=== PATIENT | male | born 1995 | race Caucasian/White ===

== ENCOUNTER 2019-03-02 21:21 | Outpatient (REF) | payer BC, SELFPAY ==
[2019-03-04 12:33] LABS: Chlamydia Result Negative; GC Result Negative; Specimen Description URINE
== END 2019-03-02 21:41 ==
LOC: NCHCN 21:21
PROVIDERS: PCP Family Medicine; Visit Provider Family Medicine
DX: R19.8 Other specified symptoms and signs involving the digestive system and abdomen (principal); Z11.3 Encounter for screening for infections with a predominantly sexual mode of transmission
CPT/HCPCS: 87491; 87591

== ENCOUNTER 2019-03-06 01:35 | Outpatient (CLI) | payer BC, SELFPAY ==
--- NOTE | 2019-03-06 08:59 | DI.US_ITS ---
SYMPTOM/DIAGNOSIS: LEFT SIDED PAIN WITH LIFTING, ABD WALL PAIN IN LT FLANK R10.9, ? HERNIA ULTRASOUND ABDOMINAL WALL The area of the patient's tenderness was scanned. No fluid collection or hernia is seen. There is no visible fluid within the visualized musculature. IMPRESSION: Negative ultrasound of the abdominal wall.
== END 2019-03-06 01:55 ==
PROVIDERS: PCP Family Medicine; Visit Provider Family Medicine
DX: R10.31 Right lower quadrant pain (principal); R10.84 Generalized abdominal pain
CPT/HCPCS: 76857

== ENCOUNTER 2020-02-10 01:21 | Outpatient (CLI) | payer BC, SELFPAY ==
--- NOTE | 2020-02-10 06:15 | DI.RAD_ITS ---
EXAM: XR HAND RT COMPLETE CLINICAL HISTORY: trauma to rt middle finger; pain/swelling at tip,M79.644 TECHNIQUE: 2D digital imaging was performed. COMPARISON: No exams were available for comparison FINDINGS: There is a fracture through the midportion of the distal phalanx of the middle finger. There is slig ht displacement but no significant angulation. There is no extension to the articular surface. No f oreign body is seen. IMPRESSION: Fracture of the distal phalanx of the middle finger.
== END 2020-02-10 01:41 ==
PROVIDERS: PCP Family Medicine; Visit Provider Family Medicine
DX: S62.632A Displaced fracture of distal phalanx of right middle finger, initial encounter for closed fracture (principal)
CPT/HCPCS: 73130

== ENCOUNTER 2020-02-18 09:52 | Outpatient (CLI) | payer BC, SELFPAY ==
--- NOTE | 2020-02-18 08:30 | DI.RAD_ITS ---
EXAM: XR FINGER RT MIDDLE CLINICAL HISTORY: f/u fracture TECHNIQUE: COMPARISON: CR XR HAND RT COMPLETE from 02/10/2020 FINDINGS: Three views were obtained. Previous described fracture of distal phalanx of the middle finger is aga in noted with no gross interval change in alignment of fracture fragments comparison with previous ex amination of February 09. IMPRESSION: RADIATION DOSE DELIVERED: Total DLP
== END 2020-02-18 10:12 ==
PROVIDERS: PCP Family Medicine; Referring Provider Family Medicine; Visit Provider Student in an Organized Health Care Education/Training Program
DX: S62.632A Displaced fracture of distal phalanx of right middle finger, initial encounter for closed fracture (principal)
CPT/HCPCS: 73140

== ENCOUNTER 2021-09-21 02:34 | Outpatient (CLI) | payer OTHER, SELFPAY ==
--- NOTE | 2021-09-21 07:30 | DI.MRI_ITS ---
Exam(s) MR CERVICAL SPINE WO EXAM: MR CERVICAL SPINE WO CLINICAL HISTORY: Persistent numbness. EMG shows C6-7 involvement,R20.0,R20.2 TECHNIQUE: Multiplanar multisequence MRI of the cervical spine was performed without intravenous con trast. COMPARISON: No exams were available for comparison FINDINGS: BONES: Vertebral body heights are maintained. Intervertebral disc spaces are normal. Alignment is nor mal. Bone marrow signal intensity is within normal limits. No degenerative changes. CERVICAL CORD: Craniovertebral junction is unremarkable. The cervical cord is normal size and signal intensity. SOFT TISSUES: Unremarkable. No mass is appreciated. C2-3: No disc herniation or bulge is identified. No neural foraminal narrowing or central canal sten osis. C3-4: No disc herniation or bulge is identified. No neural foraminal narrowing or central canal steno sis. C4-5: No disc herniation or bulge is identified. No neural foraminal narrowing or central canal steno sis. C5-6: No disc herniation or bulge is identified. No neural foraminal narrowing or central canal steno sis. C6-7: No disc herniation or bulge is identified. No neural foraminal narrowing or central canal steno sis. C7-T1: No disc herniation or bulge is identified. No neural foraminal narrowing or central canal sten osis. IMPRESSION: Unremarkable MRi of the cervical spine. DATA REPOSITORY:
== END 2021-09-21 02:54 ==
PROVIDERS: PCP Family Medicine; Visit Provider Nurse Practitioner Family
DX: R20.0 Anesthesia of skin (principal); R20.2 Paresthesia of skin
CPT/HCPCS: 72141

== ENCOUNTER 2022-01-05 01:35 | Outpatient (CLI) | payer BC, SELFPAY ==
[2022-01-05 12:45] LABS: ALT 73 U/L (16-63); AST 25 U/L (15-37); Alkaline Phosphatase 56 U/L (46-116); Anion Gap 7.3 mmol/L (3-11); BUN 11 mg/dL (7-18); Bilirubin, Total 0.9 mg/dL (0.2-1.0); CO2 28.7 mmol/L (21.0-32.0); CREATININE 0.9 mg/dL (0.70-1.30); Calcium 9.1 mg/dL (8.5-10.1); Calculated LDL 170 mg/dL (<100); Chloride 104 mmol/L (98-107); Cholesterol 222 mg/dL (<200); Glucose 91 mg/dL (74-106); HDL Cholesterol 41 mg/dL (40-60); Potassium 4.2 mmol/L (3.5-5.1); Sodium 140 mmol/L (136-145); Total Protein 7.8 g/dL (6.4-8.2); Triglyceride 56 mg/dL (<150)
== END 2022-01-05 01:36 | disposition home or self-care (01) ==
LOC: LBO 01:35
PROVIDERS: PCP Student in an Organized Health Care Education/Training Program; Referring Provider Student in an Organized Health Care Education/Training Program; Visit Provider Student in an Organized Health Care Education/Training Program
DX: E86.0 Dehydration (principal); Z13.220 Encounter for screening for lipoid disorders
CPT/HCPCS: 36415; 80053; 80061

== ENCOUNTER 2022-05-11 01:24 | Outpatient (CLI) | payer BC, SELFPAY ==
[2022-05-11 08:56] LABS: ALT 66 U/L (16-63); AST 23 U/L (15-37); Albumin 3.8 g/dL (3.4-5.0); Alkaline Phosphatase 56 U/L (46-116); Anion Gap 7.6 mmol/L (3-11); BUN 11 mg/dL (7-18); Bilirubin, Total 0.8 mg/dL (0.2-1.0); CO2 26.4 mmol/L (21.0-32.0); CREATININE 0.8 mg/dL (0.70-1.30); Calcium 8.7 mg/dL (8.5-10.1); Calculated LDL 164 mg/dL (<100); Chloride 105 mmol/L (98-107); Cholesterol 222 mg/dL (<200); Estimated GFR 123.63 (mL/min/1.73m2); Glucose 96 mg/dL (74-106); HDL Cholesterol 46 mg/dL (40-60); Potassium 4.1 mmol/L (3.5-5.1); Sodium 139 mmol/L (136-145); Total Protein 7.6 g/dL (6.4-8.2); Triglyceride 60 mg/dL (<150)
[2022-05-11 11:09] LABS: Bilirubin, Direct 0.2 mg/dL (0.0-0.2)
== END 2022-05-11 01:25 | disposition home or self-care (01) ==
LOC: LBO 01:24
PROVIDERS: PCP Student in an Organized Health Care Education/Training Program; Referring Provider Student in an Organized Health Care Education/Training Program; Visit Provider Student in an Organized Health Care Education/Training Program
DX: Z13.220 Encounter for screening for lipoid disorders (principal); E86.0 Dehydration; Z91.89 Other specified personal risk factors, not elsewhere classified
CPT/HCPCS: 36415; 80048; 80061; 80076

== ENCOUNTER 2022-06-08 00:40 | Outpatient (CLI) | payer SELFPAY ==
--- NOTE | 2022-06-08 06:45 | DI.RAD_ITS ---
Exam(s) XR CERVICAL SP COMP W FLEX/EXT EXAM: XR CERVICAL SP COMP W FLEX/EXT CLINICAL HISTORY: evaluate joint space, alignment; (+) EMG C6-7,RADICULOPATHY,ABNL EMG,M54.10. TECHNIQUE: 2D digital imaging was performed. COMPARISON: No exams were available for comparison FINDINGS: Total= 7 views, including standard five views as well as flexion/extension lateral views There is no evidence of fracture, listhesis, nor offset of the spinal laminar line. All of the disc spaces exhibit normal height. There is no facet arthropathy evident. No Luschka joint osteophytes e vident on the oblique views. No incidental cervical ribs. Bone density is normal. No osseous lesio ns. Flexion and extension views do not demonstrate listhesis nor disc space narrowing nor facet malalignm ent. IMPRESSION: No significant radiograph findings and the 7 views of the cervical spine. No disc space narrowing. No listhesis. DATA REPOSITORY: RADIATION DOSE DELIVERED:
== END 2022-06-08 01:00 ==
LOC: DI 00:40
PROVIDERS: PCP Student in an Organized Health Care Education/Training Program; Visit Provider Student in an Organized Health Care Education/Training Program
DX: M54.12 Radiculopathy, cervical region (principal); R94.131 Abnormal electromyogram [EMG]
CPT/HCPCS: 72052

== ENCOUNTER 2024-03-16 02:58 | Outpatient (CLI) | payer BC, SELFPAY | END 2024-03-16 02:59 | disposition home or self-care (01) | LOC: LBO 02:58 | PROVIDERS: PCP Student in an Organized Health Care Education/Training Program; Referring Provider Student in an Organized Health Care Education/Training Program; Visit Provider Student in an Organized Health Care Education/Training Program | DX: G47.9 Sleep disorder, unspecified (principal); D17.9 Benign lipomatous neoplasm, unspecified; F33.8 Other recurrent depressive disorders; K90.9 Intestinal malabsorption, unspecified; Z91.89 Other specified personal risk factors, not elsewhere classified; F32.A Depression, unspecified | CPT/HCPCS: 36415; 80061; 82306; 82172; 82664 ==

== ENCOUNTER 2024-03-31 02:27 | Outpatient (CLI) | payer BC, SELFPAY ==
--- NOTE | 2024-03-31 07:00 | DI.MRI_ITS ---
Exam(s) MR LOWER EXTREMITY RT WO/W EXAM: MR LOWER EXTREMITY RT WO/W CLINICAL HISTORY: f/u abnl us,leg lesion, rt lump,r22.41,L98.9 TECHNIQUE: Multiplanar multisequence MRI was performed. COMPARISON: Prior ultrasound examination 03/09/2024 FINDINGS: MARROW:There is no evidence of fracture, bone contusion, nor avascular necrosis. There are no signif icant osseous lesions. No evidence of marrow edema in the tibia and fibula.. MUSCLES: There is no evidence of abnormal signal nor mass in the visualized muscles. EXTRAMUSCULAR SOFT TISSUES: In the anterior subcutaneous fat layer there is finding corresponding to the recent ultrasound finding located just anterolateral to the tibia and anterior to the tibialis an terior muscle. This has the appearance of a lipoma which contains multiple internal serpiginous vess els, consistent with the vascular flow seen within this lesion on the recent ultrasound examination 0 03/09/2024 OTHER: There are no other similar lesions in the field of view of this study. Partially visualized k nee structures appear unremarkable. IMPRESSION: 1. Findings in the anterior subcutaneous fat corresponding to what is seen on recent ultrasound mckenzie keller appearance of probable vascular malformation within the anterior subcutaneous fat. Another conside ration would be for a lipoma with increased vascularity. No adjacent bony abnormality seen in the ti tiffanie. 2. Recommend follow-up imaging in a few months time to ensure stability. DATA REPOSITORY:
[2024-03-31] MEDS: Gadoterate meglumine 20 ML SYRINGE IVP (11:14)
[2024-03-31] MEDS: Normal Saline Flush 10 ML SYR IJ (11:23)
== END 2024-03-31 02:47 ==
LOC: DI 02:27
PROVIDERS: PCP Student in an Organized Health Care Education/Training Program; Visit Provider Nurse Practitioner
DX: R22.41 Localized swelling, mass and lump, right lower limb
CPT/HCPCS: 73720

== ENCOUNTER 2024-04-13 10:48 | Outpatient (CLI) | payer BC, SELFPAY ==
[2024-04-17 18:46] LABS: Apolipoprotein B, Serum 120 mg/dL; Beta VLDL Cholesterol Not Detected mg/dL (<15); Beta VLDL Triglycerides Not Detected mg/dL (<15); Cholesterol, Total, CDC 219 mg/dL; Chylomicron Cholesterol Not Detected; Chylomicron Triglycerides Not Detected; HDL Cholesterol, CDC 31 mg/dL (>=40); LDL Cholesterol 145 mg/dL; LDL Triglycerides 54 mg/dL (<=50); Lp(a) Cholesterol 20 mg/dL (<5); LpX Not detected; Triglycerides, CDC 129 mg/dL; VLDL Cholesterol 23 mg/dL (<30); VLDL Triglycerides 61 mg/dL (<120)
== END 2024-04-13 10:49 | disposition home or self-care (01) ==
LOC: LBO 10:48
PROVIDERS: PCP Student in an Organized Health Care Education/Training Program; Visit Provider Student in an Organized Health Care Education/Training Program
DX: G47.9 Sleep disorder, unspecified (principal); D17.9 Benign lipomatous neoplasm, unspecified; F33.8 Other recurrent depressive disorders
CPT/HCPCS: 36415; 80061; 82172; 82664

== ENCOUNTER 2024-05-05 06:07 | Day surgery (SDC) | payer BC, SELFPAY ==
--- NOTE | 2024-05-04 20:38 | HPE_ITS ---
Date of service: 05/05/24 Time of Service: 07:30 Assessment and Plan Assessment and plan (1) Lipoma: Status: Acute Assessment and plan: The patient has no allergies to lidocaine or suture material. The patient not on any blood thinners.? They are not on steroids are any other immunosuppressants. Informed consent was obtained prior to beginning the procedure. The area was marked and doubled checked/ID?ed with the pt. PAUSE for the CAUSE completed. The risks of lesion removal include but are not limited to: bleeding, infection, scarring, reoccurrence, and the need for removal of more tissue, and complications of anesthesia. Qualifiers: Laterality: right Lipoma location: lower extremity Qualified Code(s): D17.23 - Benign lipomatous neoplasm of skin and subcutaneous tissue of right leg History of Present Illness Narrative: Patient is here today for excision of lipoma 3=4cm of rle ant ying They not having any chest pain or shortness of breath, currently.? They are not experiencing any fever or chills.? They deny any productive cough or upper respiratory tract infection signs or symptoms.? They are not having abdominal pain, or nausea and vomiting.? They have not had any changes in medications, past medical history or past surgical history since previously being seen in the office. They have not had any accidents or have been in the ER since the clinic pre-operative evaluation. ??I reviewed the procedure with the patient today, including risks and benefits of the procedure, and what they could expect at home for recovery.? All questions are answered to the patient?s satisfaction today, and they are stable to proceed with the proposed procedure. 1. Lipoma versus vascular malformation on left lower extremity. The MRI findings suggest increased vascularity, indicating a high concentration of blood vessels in the area. An outpatient surgery is recommended for removal. The procedure, including the use of EMLA cream for numbing, was explained in detail. The potential risks, such as bleeding, infection, and recurrence, were also discussed. Post-operative care instructions include having stitches for 10 days, resting for the first 3 days, and avoiding swimming or hot tubs for 10 days. A small scar is expected at the site of removal. They agreed to proceed with the surgery, which will be scheduled on a Saturday. We reviewed what he could expect during the procedure, recovery time, and risks. Risks include but not limited to: Bleeding, infection, recurrence, reaction to medications, scarring, poor healing or cosmesis. Patient understands and desires removal of lesion. Patient will be scheduled today as a local only over in the OR because of the noted increase in vascularity on MRI and size. Patient was given the option of doing the procedure with anesthesia and he prefers to do as local only. The patient is a 29-year-old individual who presents for evaluation of a lump on their left lower extremity, suspected to be either a lipoma or a vascular malformation. They first noticed the lump approximately 5 to 6 years ago. Initially, it was not visible but could be felt. Over the past 1 to 2 years, they have observed an increase in its size. The lump has not ruptured, drained, or bled. It causes discomfort when they kneel on the affected leg, but the pain is not severe. They are considering having the lump removed. They have no known heart conditions, diabetes, asthma, sleep apnea, or breathing issues. They have had a vasectomy and had their wisdom teeth removed a long time ago without any problems with anesthesia. Focused exam was done of the lesion today. I does have the looking characteristic palpation of a lipoma. I did review the ultrasound in the chart and the MRI of the lipoma. My findings correspond with what was previously reported in the ultrasound. Aniceto is not diabetic. He does not smoke. He has had no reactions to local anesthesia or suture material in the past. He is not on any blood thinners or any immunocompromising medication. He has no history of keloids or healing problems. Review of Systems All systems reviewed & are unremarkable except as noted in HPI and below PFSH All Active Problems Lipoma (Acute) Right ying, no pain, mobile {updating d/t oustanding referral, see activities - last: On 11/08/23 @ 13:30 Marianna Rose Wrote To Micheline Hylton Referral process protocol was followed and it was not possible to contact patient [OR] patient refused services. This serves as your notification that this referral will be cancelled, please confirm receipt of this message or give instructions as to any additional outreach that you would like done.} Sleeping difficulties (Acute) Long Hx with difficulty falling asleep; usually sleeps well once asleep. No specific c/o snoring/apnea. Mood complaints in sleep disorder (Acute) w/ premature ejac? arousal change? EMG (electromyogram) abnormalities (Acute) C6-7, [facility], 08/2021 Radiculopathy (Acute) Moderate left and mild right C6-7 .. per EMG/NCV @ [facility], 08/24/21 Neck stiffness (Acute) Neck pain, musculoskeletal (Acute) Seasonal affective disorder (Acute) Hx using happy light (currently in storage) .. improved with spring. Depression (Chronic) Dehydration (Acute) Medical History Clavicle fracture, shaft rt, closed, non-displaced, 2016 Fracture of scapula, glenoid cavity or neck right, 2015 History of reactive airway disease Cyst of skin (11/24/12) Headache left-sided, improved .. 2' neck stiffness, s/p repetitive work Numbness and tingling of both upper extremities carpal tunnel ruled out Psoriasis Was on enbrel 50mg SC weekly by bruceer Lumbar strain Distal phalanx or phalanges, closed fracture Pain of right middle finger Surgical History Hx of vasectomy Dr. Chinchilla, 2021 History of third molar tooth extraction Family History Father Alcohol use disorder Prostate cancer Paternal Grandmother Cancer Lung Maternal Grandfather Cancer pancreas Diabetes Social History Smoking/Tobacco Use Status: Former Tobacco Use tobacco type: e-cigarettes Smokeless tobacco user: other (Vape) Second Hand Exposure: No Smoking risk assessment performed?: Yes Alcohol Intake: current Alcohol Intake frequency: 0-2 drinks per day Drug use: Occasionally Substance use type: marijuana Details: Not used today. Adopted: No Caregiver/Support person: No Foster care: No Household members: significant other Housing: apartment Number of Children: 0 Communication Needs: None Education Level: high school Do you need help understanding health information?: Rarely current occupation: Radio Despatcher Pets and animals: Yes Pets and animals: cat(s) and dog(s) Sexually active: Yes Do you think of yourself as: straight/heterosexual Current gender identity: male What is your relationship status?: living with partner How often do you talk on the phone with friends or family?: once per week How often do you get together with friends or relatives?: never Do you belong to any clubs or organized social groups?: no Panel score (0-1 are the most socially isolated patients): 1 What type of physical activity do you participate in: none Rubina/Alevism: None Seatbelt use: sometimes Helmet use: Yes Helmet use: always Drive intox or ride w/intox armor reconnaissance vehicle driver: No Do you feel safe at home: Yes Do you feel safe in your relationship?: Yes Meds Allergies and Home Medications Allergies Allergy/AdvReac Type Severity Reaction Status Date / Time No Known Allergies Allergy Verified 05/05/24 06:17 Home Medications ?Medication ?Instructions ?Recorded ?Confirmed ?Type psyllium husk 0.4 gram capsule 0.4 g PO DAILY PRN constipation 08/10/22 05/05/24 Rx (Fiber (psyllium husk)) #90 caps bupropion HCl 150 mg 24 hr tablet, See Rx Instructions .Route 03/04/24 05/05/24 Rx extended release .COMPLEX #90 tabs bupropion HCl 300 mg 24 hr tablet, 300 mg PO QAM #90 tabs 03/04/24 05/05/24 Rx extended release sertraline 100 mg tablet 100 mg PO QHS #90 tabs 03/04/24 05/05/24 Rx cholecalciferol (vitamin D3) 1,250 1,250 mcg PO QWEEK #10 caps 03/24/24 05/05/24 Rx mcg (50,000 unit) capsule Exam Narrative Exam Narrative: PHYSICAL EXAM GENERAL APPEARANCE: Alert, healthy appearance, oriented, x 3,? in no acute distress HYDRATION: Well hydrated HEAD, EYES, EARS, NECK, THROAT: Head is normocephalic, pupils equal, round, reactive to light and accommodation, ocular movement intact, sclera clear and no jaundice. ?Dentition intact. LUNGS: normal respiration/normal chest excursion. ?Clear to auscultation bilaterally. ?No wheeze. ?HEART: Regular rate and rhythm. no murmurs EXTREMITY: ABDOMEN: soft and non-tender to palpation.? Normal bowel sounds.? Time Spent Time spent with Patient: <40 minutes Time was spent: preparing to see the patient(eg.review tests), obtaining and/or reviewing separately otained hiistory, ordering medications,tests, procedures, referring, communicating with other health out of school hours care worker, indepentently interpreting results, counseling the patient, care coordination and other
--- NOTE | 2024-05-04 20:42 | PDOC.DSDIS_ITS ---
Date of service: 05/05/24 Time of Service: 08:14 Discharge Plan Disposition Patient Disposition: Home Condition: Good Discharge Details Reason For Visit: lipoma removal Attending Provider: Kaia Ayala Primary Care Provider: Micheline Hylton Home Meds and New Rx's Prescriptions: New tramadol 50 mg tablet 50 mg PO Q6H PRNQty: 5 0RF Continued psyllium husk [Fiber (psyllium husk)] 0.4 gram capsule 0.4 g PO DAILY PRN (Reason: constipation) Qty: 90 1RF Rx Instructions: Trial for increased soluble fiber bupropion HCl 150 mg tablet extended release 24 hr See Rx Instructions .ROUTE .COMPLEX MDD 450mg Qty: 90 3RF Dose Instruction: TAKE 1 TABLET BY MOUTH EVERY MORNING. MAX DAILY DOSE: 450 MG; TAKE WITH 300 MG DOSE. TO EQUAL 450 MG TOTAL DAILY Rx Instructions: TAKE 1 TABLET BY MOUTH EVERY MORNING. MAX DAILY DOSE: 450 MG; TAKE WITH 300 MG DOSE. TO EQUAL 450 MG TOTAL DAILY bupropion HCl 300 mg tablet extended release 24 hr 300 mg PO QAM MDD 450mg Qty: 90 3RF Rx Instructions: take with 150mg dose to equal 450mg daily sertraline 100 mg tablet 100 mg PO QHS Qty: 90 3RF Rx Instructions: Continuing cholecalciferol (vitamin D3) 1,250 mcg (50,000 unit) capsule 1,250 mcg PO QWEEK Qty: 10 0RF Discharge Instructions Additional Instructions: ? Wound Care Instruction Pain Control Use ice!? Ice keeps the swelling down and swelling is what causes pain.? Never apply ice directly to the skin.? Wrap it in a towel or cloth.? Apply ice 20 minutes on and 20 minutes off for pain control.? Use as needed. Take Tylenol 500 mg by mouth with food every 4 hours as needed for pain. Or ibuprofen 600 mg by mouth with food every 6 hours as needed for pain.? Do not take Tylenol if you have a history of heavy drinking, hepatitis C or liver problems.? Do not take ibuprofen if you have a history of stomach ulcers/problems, bleeding problem or kidney issues. ? Always wash your hands before touching your incision. ? Keep the incision clean, dry, and out of water, keep the incision out of water. ? Do not to pick at the scabs. Scabs help protect the wound. ? You can take a shower in 24 hours and wash the incision with soap and water. Pat dry/don?t scrub. It?s OK to wash around the incision. But don?t spray water directly on it. ? Pat stitches dry if they get wet. Don't rub. ? Check the incision site daily for pain, redness, drainage, swelling, or separation of the incision edges. ? Make sure any clothing that touches the incision is loose-fitting. This will prevent rubbing. As your incision heals, the skin may appear pink or red. It may also feel slightly bumpy or raised. This is called a healing ridge. Over time, the color should fade and the raised skin will become less noticeable. When to seek medical care Call your healthcare provider right away if you have any of these: ? More pain, redness, swelling, bleeding, or foul-smelling discharge around the incision area ? Fever of 101?F (38.3?C) or higher, or as directed by your child's healthcare provider ? Shaking chills ? Vomiting or nausea that doesn?t go away ? Numbness, coldness, or tingling around the incision area, or changes in skin color ? Opening of the sutures or wound -Stitches or francisco that come apart or fall out or surgical tape falls off before 7 days, or as directed by your healthcare provider ?[facility]: [phone] Activity:: see above Remove Dressings/Wound Care:: 24 hours Shower/Bathe:: 24 hours Diet:: As Tolerated Discharge Orders Discharge Orders: Discharge Order (Routine); Ordered 05/04/24 Ordered By: Kaia Ayala DS: Diagnosis Discharge Diagnosis (1) Lipoma: Status: Acute Asessment and Plan: The patient is doing well post-op from their lipoma surgery.? They are having no nausea or vomiting. They are tolerating liquids and a snack. The pt is not having any chest pain or SOB.? Their pain is adequately controlled. They have been able to urinate.? ?HEENT:? no eye pain/drainage/redness/swelling. Mild sore throat ?Cardio- NSR, no chest pain, BP stable- see VS record ?Pulm: no sob or productive cough. No hemoptysis ?Incision- dressing is c/d/i w/ no excessive bleeding or drainage ?I discussed with the patient the findings at the time of surgery and the patient?s progress. ?We reviewed expectations at home; what the patient could expect for recovery time, and in the post-operative period.? We discussed the importance of walking to avoid blood clots and pneumonia.? We discussed and reviewed the patient's pos t-operative wound care and dressing needs.?? We reviewed their step-albarran pain management plan, Rx called to the pharmacy of their choice.? We reviewed activity and limitations-see discharge instructions. We reviewed warning signs, and when to seek medical attention- see d/c instructions.?? Patient was given a postoperative follow-up appointment. Patient verbalized understanding of their postoperative instructions, how do to take care of themselves and their incision, and the pain management plan. Please see discharge instructions.?
[2024-05-05 06:28] VITALS: BP 123/76; PULSE 74; RESP 16; TEMP 35.6; O2SAT 96
[2024-05-05] MEDS: Acetaminophen 500 MG TAB 1000 MG PO (06:32)
[2024-05-05] MEDS: Gabapentin 300 MG CAP 600 MG PO (06:32)
[2024-05-05] MEDS: Lidocaine/Prilocaine Cream 5 GM TUBE TP (06:33)
[2024-05-05] MEDS: Bupivacaine 0.25% Pres-Free W/EPI 30 ML VIAL (07:48)
[2024-05-05 08:09] VITALS: BP 101/73; PULSE 68; RESP 16; TEMP 35.6; O2SAT 99
--- NOTE | 2024-05-05 08:19 | W.PM.OP ---
Date of service: 05/05/24 Time of Service: 08:19 Operative Note Operative Note DATE OF PROCEDURE: 05/05/24 PRE-OP DIAGNOSIS: RLE lipoma POST-OP DIAGNOSIS: same SURGEON: Kaia Ayala ANESTHESIA TYPE: Local By Surgeon Refer to Anesthesia Record ESTIMATED BLOOD LOSS: 1 PATHOLOGY: none sent COMPLICATIONS: None Patient was transported to: same day Patient's condition: stable Procedure Description: Patient is seen and lesion is marked in preop. Informed consent is obtained explaining risks and benefits of procedure include not limited to: Bleeding, infection, scarring, recurrence, complications from medication, and other on for told complications. Patient brought back to the OR and placed in the supine position. Patient is prepped and draped in the usual sterile fashion using a ChloraPrep scrub solution. Timeout is performed. 40 cc of quarter percent Marcaine with epi was used for local anesthesia. A 1-1/2 inch incision is made using a number 15 blade. The lipoma is then sharply dissected out. It is 4 x 4 cm. Cautery was not required. Incision was irrigated and closed with 3-0 nylon in interrupted fashion. Sterile dressing is applied. Patient Toller procedure well without complication.
== END 2024-05-05 08:30 | disposition home or self-care (01) ==
LOC: SUR 06:07
PROVIDERS: PCP Student in an Organized Health Care Education/Training Program; Visit Provider Surgery
PROC: (CPT 11406; principal; 2024-05-05 07:30)
DX: D17.23 Benign lipomatous neoplasm of skin and subcutaneous tissue of right leg (principal)
CPT/HCPCS: 11406

== ENCOUNTER 2024-12-16 01:29 | Outpatient (CLI) | payer BC, SELFPAY ==
[2024-12-16 13:14] LABS: Vitamin D 25 Total 44 ng/mL (30-100)
[2024-12-21 17:00] LABS: Apolipoprotein B, Serum 94 mg/dL; Beta VLDL Cholesterol Not Detected mg/dL (<15); Beta VLDL Triglycerides Not Detected mg/dL (<15); Cholesterol, Total, CDC 159 mg/dL; Chylomicron Cholesterol Not Detected; Chylomicron Triglycerides Not Detected; HDL Cholesterol, CDC 35 mg/dL (>=40); LDL Cholesterol 89 mg/dL; LDL Triglycerides 57 mg/dL (<=50); Lp(a) Cholesterol 17 mg/dL (<5); LpX Not detected; Triglycerides, CDC 103 mg/dL; VLDL Cholesterol 18 mg/dL (<30); VLDL Triglycerides 29 mg/dL (<120)
== END 2024-12-16 01:30 | disposition home or self-care (01) ==
LOC: LOS 01:29
PROVIDERS: Student in an Organized Health Care Education/Training Program; PCP Family Medicine; Visit Provider Family Medicine
DX: E78.41 Elevated Lipoprotein(a) (principal); E78.00 Pure hypercholesterolemia, unspecified; K90.9 Intestinal malabsorption, unspecified
CPT/HCPCS: 36415; 80061; 82306; 82172; 82664

== ENCOUNTER 2025-01-26 09:51 | Outpatient (CLI) | payer BC, SELFPAY ==
--- NOTE | 2025-01-26 09:45 | RT.EKG_ITS ---
APPROVED REPORT Exam: Resting ECG Reason for Exam: Current [facility] use of stimulant medication Patient Location: O HR:70 bpm ECG Measurements Heart Rate 70 AXIS NM 137 P 43 QRSd 95 QRS 2 QT 386 T 29 QTc 417 Conclusion Sinus rhythm...normal P axis, V-rate 50- 99 Baseline wander in lead(s) V5 Normal Electrocardiogram
== END 2025-01-26 09:52 | disposition home or self-care (01) ==
LOC: DI.KIM 09:52
PROVIDERS: PCP Family Medicine; Visit Provider Family Medicine
DX: Z79.899 Other long term (current) drug therapy (principal)
CPT/HCPCS: 93010